=== PATIENT | male | born 1955 | race Caucasian/White ===

== ENCOUNTER 2024-06-15 08:38 | Outpatient (CLI) | payer MEDICARE, SELFPAY ==
--- NOTE | ~2024-06-15 | XR_ITS ---
XR shoulder LT min 2V Ordering provider: JACKI King History: . No injury left shoulder pain . Comparison: None. FINDINGS: BONES: No acute fracture or dislocation. JOINT SPACES: The acromioclavicular joint is normal. The glenohumeral joint is normal. SOFT TISSUES: Normal. IMPRESSION: No acute osseous abnormality left shoulder. Reviewed, dictated and finalized at location A. [employer] SUPERVISOR
--- NOTE | ~2024-06-15 | XR_ITS ---
Left Knee Technique: AP, lateral, and sunrise views were obtained. Clinical History: Pain Findings: No fracture or dislocation is seen. There is mild degenerative spurring at the lateral join t line and patella. Probable small joint effusion is seen. Impression: Mild degenerative changes, as above. Probable small joint effusion. Reviewed, dictated and finalized at location . OLL ACCOUNTING MANAGER Impression: Mild degenerative changes, as above. Probable small joint effusion.
== END 2024-06-15 08:39 | disposition home or self-care (01) ==
LOC: GOSHIMG 08:39
PROVIDERS: PCP Family Medicine; Visit Provider Nurse Practitioner Family
DX: M25.512 Pain in left shoulder (principal); M17.12 Unilateral primary osteoarthritis, left knee
CPT/HCPCS: 73030; 73562